=== PATIENT | male | born 1985 | race Caucasian/White ===

== ENCOUNTER 2017-02-04 10:44 | Emergency (ER) | payer MEDICAID ==
[~2017-02-04] VITALS: Ht 172.7 cm; Wt 68.2 kg
[2017-02-04] MEDS ORDERED: OXYC20TA40 (11:00)
[2017-02-04] MEDS ORDERED: NEUR600T PO ×2 (11:00→13:37)
[2017-02-04] MEDS ORDERED: NOVOINJ3 SC ×2 (11:00→13:37)
[2017-02-04] MEDS ORDERED: PERC10TA26 PO ×2 (11:00→13:37)
[2017-02-04] MEDS ORDERED: LINZ290C PO (11:01)
[2017-02-04] MEDS ORDERED: oxyCODONE 5MG TAB PO ONE (11:45)
[2017-02-04] MEDS ORDERED: NS 1,000 ML IV ONE ×2 (11:45→13:30)
[2017-02-04] MEDS ORDERED: OXYC20TA40 PO (12:29)
[2017-02-04] MEDS ORDERED: oxyCODONE 10 MG CR TAB PO ONE (12:30)
[2017-02-04] MEDS ORDERED: oxyCODONE 20 MG CR TAB PO ONE (12:30)
[2017-02-04 12:31] LABS: BASO % 0.6 % (0.0-1.0); EOS # 0.1 10^3/uL (0.0-0.50); IMMATURE GRANULOCYTE % 0.7 % (0-0); LYMPH # 2.2 10^3/uL (1.5-4.5); MEAN CORPUSCULAR HEMOGLOBIN 27.2 pg (27.0-33.0); MEAN CORPUSCULAR HGB CONC 33.6 g/dl (32.0-36.5); MEAN CORPUSCULAR VOLUME 80.9 fl (80.0-96.0); MONO # 0.4 10^3/uL (0.0-0.8); MONO % 5.4 % (0.0-5.0); NEUTROPHILS % 59.3 % (36.0-66.0); PLATELET COUNT, AUTOMATED 150 10^3/uL (150-450); RED CELL DISTRIBUTION WIDTH 12.2 % (11.5-14.5); VENOUS BASE EXCESS -0.7 (-2.0-2.0); VENOUS O2 SATURATION 57.7 % (60.0-80.0); VENOUS PARTIAL PRESSURE CO2 58.2 mmHg (38.0-50.0); VENOUS PARTIAL PRESSURE O2 33.1 mmHg (30.0-50.0); VENOUS STANDARD HCO3 22.9 MEQ/L; WHITE BLOOD COUNT 6.7 10^3/uL (4.0-10.0)
[2017-02-04 12:58] LABS: METHADONE URINE NEGATIVE (NEGATIVE)
[2017-02-04 13:00] LABS: ALBUMIN/GLOBULIN RATIO 1.33 (1.00-1.93); ALKALINE PHOSPHATASE 162 U/L (45-117); ALT/SGPT 30 U/L (12-78); ANION GAP 9 MEQ/L (8-16); AST/SGOT 21 U/L (15-37); BILIRUBIN,DIRECT 0.1 MG/DL (0.0-0.2); BILIRUBIN,TOTAL 0.4 MG/DL (0.2-1.0); BLOOD UREA NITROGEN 12 MG/DL (7-18); CALCIUM LEVEL 9.3 MG/DL (8.5-10.1); CARBON DIOXIDE LEVEL 28 MEQ/L (21-32); CHLORIDE LEVEL 93 MEQ/L (98-107); CREATININE FOR GFR 1.11 MG/DL (0.70-1.30); GLOMERULAR FILTRATION RATE > 60.0 (>60); POTASSIUM SERUM 4.7 MEQ/L (3.5-5.1); SODIUM LEVEL 130 MEQ/L (136-145)
[2017-02-04 13:02] LABS: GLUCOSE, FASTING 730 MG/DL (70-105)
[2017-02-04 13:14] LABS: OSMOLALITY SERUM 314 MOSM/KG (275-295)
[2017-02-04] MEDS ORDERED: HumuLIN R (REGULAR) INSULIN (NovoLIN R) **100U/ML** PER UNIT IV ONE (13:30)
[2017-02-04] MEDS ORDERED: FREEMIS42 XX (13:37)
[2017-02-04] MEDS ORDERED: BLOOKIT20 XX (13:37)
[2017-02-04 14:45] VITALS: BP 104/72
== END 2017-02-04 14:46 | disposition home or self-care (01) ==
LOC: M ED 10:44
DX: E10.65 Type 1 diabetes mellitus with hyperglycemia (principal); G89.29 Other chronic pain; M79.641 Pain in right hand; M79.642 Pain in left hand; M54.5 Low back pain; Z88.8 Allergy status to other drugs, medicaments and biological substances; Z79.4 Long term (current) use of insulin; Z79.899 Other long term (current) drug therapy

== ENCOUNTER → 2017-02-08 | Outpatient (CLI) | payer MEDICAID ==
[~2017-02-08] MED LIST: BLOOKIT20 XX; FREEMIS42 XX; LINZ290C PO; NEUR600T PO; NOVOINJ3 SC; OXYC20TA40; OXYC20TA40 PO; PERC10TA26 PO
--- NOTE | 2017-02-08 13:44 | REP ---
CT ABDOMEN AND PELVIS WITHOUT CONTRAST: CT abdomen and pelvis performed without oral or IV contrast, with sagittal and coronal reconstruction images performed. The visualized lung bases are clear. The liver is grossly unremarkable. The patient has had a prior cholecystectomy. Spleen, adrenals, and pancreatic head are unremarkable in appearance. Pancreatic body and tail are not visualized and may be fatty replaced. There is a low density nodule in the mid left kidney 2 cm in diameter which probably represents a cyst. Recommend confirmation with ultrasound. No renal or ureteral calculus is seen and there is no hydroureteronephrosis. There is no abdominal aortic aneurysm. There is no adenopathy. There is no free air or free fluid. There is no bowel wall thickening. No pelvic abnormality is seen. Urinary bladder is mildly distended and grossly unremarkable. IMPRESSION: No renal or ureteral calculus and no hydroureteronephrosis. 2 cm low density nodule left kidney probably represents a cyst. Recommend confirmation with ultrasound. Signed by Juan M Spaulding MD 02/08/2017 08:00 P
== END ==
LOC: M RAD 12:07
PROVIDERS: ATTEND Nurse Practitioner Family
DX: R31.0 Gross hematuria (principal)

== ENCOUNTER → 2017-02-08 | Outpatient (REF) | payer MEDICAID ==
[2017-02-08 14:28] LABS: BASO # 0.1 10^3/uL (0.0-0.2); BASO % 0.7 % (0.0-1.0); EOS # 0.1 10^3/uL (0.0-0.50); EOS % 1.6 % (0.0-3.0); IMMATURE GRANULOCYTE % 1.1 % (0-0); LYMPH # 2.5 10^3/uL (1.5-4.5); LYMPH % 32.8 % (24.0-44.0); MEAN CORPUSCULAR HGB CONC 33.7 g/dl (32.0-36.5); MEAN CORPUSCULAR VOLUME 83.3 fl (80.0-96.0); MONO # 0.5 10^3/uL (0.0-0.8); NEUTROPHILS # 4.3 10^3/uL (1.8-7.7); NEUTROPHILS % 57.8 % (36.0-66.0); PLATELET COUNT, AUTOMATED 140 10^3/uL (150-450); RED CELL DISTRIBUTION WIDTH 12.5 % (11.5-14.5); WHITE BLOOD COUNT 7.5 10^3/uL (4.0-10.0)
[2017-02-08 15:08] LABS: ANION GAP 8 MEQ/L (8-16); BLOOD UREA NITROGEN 12 MG/DL (7-18); CALCIUM LEVEL 9.3 MG/DL (8.5-10.1); CARBON DIOXIDE LEVEL 28 MEQ/L (21-32); CHLORIDE LEVEL 104 MEQ/L (98-107); CREATININE FOR GFR 0.94 MG/DL (0.70-1.30); GLOMERULAR FILTRATION RATE > 60.0 (>60); GLUCOSE, FASTING 269 MG/DL (70-105); POTASSIUM SERUM 3.9 MEQ/L (3.5-5.1); SODIUM LEVEL 140 MEQ/L (136-145)
== END ==
LOC: M SFHCPLAZ 11:17
PROVIDERS: ATTEND Nurse Practitioner Family
DX: R31.0 Gross hematuria (principal); E10.8 Type 1 diabetes mellitus with unspecified complications

== ENCOUNTER 2017-02-12 17:12 | Emergency (ER) | payer MEDICAID ==
[~2017-02-12] VITALS: Ht 172.7 cm; Wt 72.7 kg
[2017-02-12 18:57] LABS: MEAN CORPUSCULAR HEMOGLOBIN 27.1 pg (27.0-33.0); MEAN CORPUSCULAR HGB CONC 32.5 g/dl (32.0-36.5); MEAN CORPUSCULAR VOLUME 83.5 fl (80.0-96.0); RED CELL DISTRIBUTION WIDTH 12.4 % (11.5-14.5); WHITE BLOOD COUNT 10.4 10^3/uL (4.0-10.0)
[2017-02-12 19:04] LABS: CBCMD ORDERED? YES (YES)
[2017-02-12 19:08] LABS: INR 0.88
[2017-02-12 19:15] LABS: ANION GAP 7 MEQ/L (8-16); BLOOD UREA NITROGEN 20 MG/DL (7-18); CALCIUM LEVEL 9.2 MG/DL (8.5-10.1); CARBON DIOXIDE LEVEL 33 MEQ/L (21-32); CHLORIDE LEVEL 100 MEQ/L (98-107); CREATININE FOR GFR 0.93 MG/DL (0.70-1.30); GLOMERULAR FILTRATION RATE > 60.0 (>60); GLUCOSE, FASTING 198 MG/DL (70-105); POTASSIUM SERUM 4.1 MEQ/L (3.5-5.1); SODIUM LEVEL 140 MEQ/L (136-145)
[2017-02-12] MEDS ORDERED: OXYMETAZOLINE NASAL SPRAY (AFRIN) ONE (19:30)
[2017-02-12 19:31] LABS: BANDS 1 % (< 11); BASOPHILS 1 % (0-4); EOSINOPHILS 2 % (0-5)
--- NOTE | 2017-02-12 21:30 | REPUSA ---
HISTORY: SWELLING. TECHNIQUE: The right and left lower extremity venous ultrasound examination was performed with high-r esolution prater scale sonography, color flow Doppler imaging, and spectral waveform analysis, with com pression and augmentation procedures performed. FINDINGS: The examination demonstrates normal flow and patency, with demonstration of compression and augmentation, in the greater saphenous vein and in the deep venous system extending from the common femoral vein through the superficial femoral vein and popliteal vein of right and left lower extremit ies.. No intraluminal filling defects or vascular abnormalities are identified. Bilateral inguinal l ymph nodes are noted. IMPRESSION: Negative right and left lower extremity venous ultrasound examination with no evidence of deep vein thrombosis.
[2017-02-12 22:26] VITALS: BP 120/72
== END 2017-02-12 22:30 | disposition home or self-care (01) ==
LOC: M ED 17:12
DX: R60.9 Edema, unspecified (principal); E11.9 Type 2 diabetes mellitus without complications; Z86.718 Personal history of other venous thrombosis and embolism; Z88.5 Allergy status to narcotic agent; Z79.4 Long term (current) use of insulin; Z79.899 Other long term (current) drug therapy

== ENCOUNTER → 2017-03-10 | Outpatient (REF) | payer OTHER ==
[2017-03-10 13:11] LABS: ANION GAP 6 MEQ/L (8-16); BLOOD UREA NITROGEN 12 MG/DL (7-18); CALCIUM LEVEL 9.5 MG/DL (8.5-10.1); CARBON DIOXIDE LEVEL 30 MEQ/L (21-32); CHLORIDE LEVEL 103 MEQ/L (98-107); CREATININE FOR GFR 0.83 MG/DL (0.70-1.30); GLOMERULAR FILTRATION RATE > 60.0 (>60); GLUCOSE, FASTING 200 MG/DL (70-105); SODIUM LEVEL 139 MEQ/L (136-145)
== END ==
LOC: M SFHCPLAZ 11:03
PROVIDERS: ATTEND Nurse Practitioner Family
DX: E10.8 Type 1 diabetes mellitus with unspecified complications (principal)